=== PATIENT | female | born 1970 | race Caucasian/White ===

== ENCOUNTER 2024-05-13 06:12 | Emergency (ER) | payer OTHER, SELFPAY ==
[2024-05-13 06:15] VITALS: BP 132/66
[2024-05-13 06:43] VITALS: BMI 15.9
[2024-05-13 07:02] LABS: % Basophils 0.7 % (0-2); % Eosinophils 0.7 % (0-6); % Immature Granulocytes 0.2 % (0-0.5); % Lymphocytes 22.2 % (20.5-51.1); % Monocytes 13.3 % (1.7-9.3); % Neutrophils 62.9 % (42.2-75.2); Absolute Monocytes 0.6 10^3/uL (0.1-0.6); Absolute Neutrophils 2.8 10^3/uL (1.4-6.5); Hemoglobin 13.6 g/dL (12.0-16.0); Mean Corp Hgb Conc. 33.2 g/dL (33.0-37.0); Mean Corpuscular Hgb 30.9 pg (27.0-31.0); Mean Corpuscular Volume 93.2 fL (81.0-99.0); Mean Platelet Volume 9.3 fL (7.4-10.4); Nucleated Red Blood Cells % 0 %; Platelet Count 203 10^3/uL (130-400); White Blood Cell Count 4.5 10^3/uL (4.8-10.8)
[2024-05-13 07:12] LABS: ALT (SGPT) 31 U/L (0-35); AST (SGOT) 44 U/L (14-36); Albumin 4.4 g/dl (3.5-5.0); Alkaline Phosphatase 79 U/L (38-126); Blood Urea Nitrogen 11 mg/dl (7-17); Calcium 9.4 mg/dl (8.4-10.2); Carbon Dioxide 27 mmol/L (22-30); Chloride 102 mmol/L (98-107); Estimated Creatinine Clearance 73 ml/min; Glucose 114 mg/dl (70-99); Lipase 113 U/L (23-300); Sodium 136 mmol/L (135-145); Total Bilirubin 0.4 mg/dl (0.2-1.3); Total Protein 6.6 g/dl (6.3-8.2); eGFR > 60.00
[2024-05-13 07:21] LABS: Potassium 3.9 mmol/L (3.5-5.1)
--- NOTE | 2024-05-13 07:47 | ED.GENMED ---
History of Present Illness
General
Chief Complaint: Flank Pain
Source: patient
Time Seen by Provider: 05/13/24 07:16
History of Present Illness
History of Present Illness:
54-year-old female with previous history of alcohol abuse (sober x 5 years) presenting to the emergency department for evaluation of central abdominal pain described to go from the suprapubic region extending through the epigastric region as well as
feeling the sensation a little bit in her right lower back. Patient states the pain is sharp, constant since yesterday with intermittent times of worse pain and accompanied with a little bit of nausea but no vomiting, no change in oral intake to
solids or liquids, no urinary symptoms or bowel changes. Patient denies any history of similar. No history of surgeries on her abdomen. She took a Tylenol around 8 PM last night but with minimal relief. Patient is also denying any fevers,
chills, rigors.
Past History
Past History
ED Past Medical History: Psychiatric
ED Past Surgical History: Gynecological
Social History
Tobacco: Smoker (1 cigar daily)
Alcohol: Former
Drug: None
Living: with family
Employment: Employed
Family History
Family History: Negative Early CAD
Phy Exam
Physical Exam
Physical Exam:
GENERAL: Alert , in no apparent distress but does appear uncomfortable
EYE: clear conjunctiva b/l
HEAD: NCAT
ENT: o/p clr, mmm.
CARDIAC: Regular rate and rhythm .
LUNGS: Clear breath sounds bilaterally, no acute respiratory distress, no wheezes/rales/rhonchi
ABDOMEN: Soft, right lower quadrant tenderness with grimacing on palpation, no r/g, no cvat, negative Salgado sign, mild tenderness at McBurney's point
NEUROLOGICAL: Alert and oriented
SKIN: Warm and dry, skin intact.
MUSCULOSKELETAL: well perfused.
PSYCH: Normal and appropriate interaction.
Scores
Heart Failure Risk
Heart Failure Risk Score: Not Applicable
Heart Score for Chest Pain Patients
STEMI patient?: Not applicable
Withdrawal Assessment of Alcohol
Withdrawal Assessment Completed?: Not applicable
Course
Orders/Labs/Results
Orders:
Orders
05/13/24 06:52
Complete Blood Count/With Diff Urgent
Comprehensive Metabolic Panel Urgent
Lipase Urgent
05/13/24 07:25
CT Abd/pel W Iv And Oral Contr Urgent
Comment:
Reason For Exam: central/RLQ abd pain
Iohexol [Omnipaque] See Protocol PO NOW STA
05/13/24 07:26
Ketorolac [Toradol] 30 mg IV NOW STA
05/13/24 08:28
Morphine Sulfate 4 mg IV NOW STA
05/13/24 08:38
Urinalysis Reflex To Culture Urgent
Date Specimen was Collected: 05/13/24
Time Specimen was Collected: 08:14
Urine Microscopic Reflex Cult Urgent
05/13/24 11:10
Add On- LAB Urgent
Tests Added?: troponin
Electrocardiogram (*1) Urgent
Reason for Study: Abdominal Pain
EKG- Treatment ONCE
05/13/24 11:42
Troponin I Routine
Abnormal Lab Results
05/13/24 05/13/24
06:52 08:38
WBC 4.5 L 10^3/uL
(4.8-10.8)
Absolute Lymphs (auto) 1.0 L 10^3/uL
(1.2-3.4)
Monocytes % 13.3 H %
(1.7-9.3)
Glucose 114 H mg/dl
(70-99)
AST 44 H U/L
(14-36)
Urine Ketones Trace A
(Negative)
Ur Occult Blood Reflex 3+ A
(Negative)
Leukocyte Esterase Rfl Trace A
(Negative)
Urine RBC 11-15 A /HPF
(0-2)
Urine Bacteria (Reflex) Few A
(Negative)
05/13/24 06:52
05/13/24 06:52
Vital Signs
Initial and Last Documented VS:
Initial Vital Signs
Temp Pulse Resp BP Pulse Ox
98.2 F 50 20 132/66 100
05/13/24 06:15 05/13/24 06:15 05/13/24 06:15 05/13/24 06:15 05/13/24 06:15
Last Documented Vital Signs
Temp Pulse Resp BP Pulse Ox
98.2 F 41 18 113/68 96
05/13/24 06:15 05/13/24 09:00 05/13/24 09:00 05/13/24 12:00 05/13/24 12:45
MDM/Problems Addressed
Differential Diagnosis Includes:
Appendicitis, renal/ureteral colic, pancreatitis, aortic pathology, urinary tract infection
MDM/Problems Addressed:
54-year-old female presenting to the emergency department for evaluation of abdominal pain that started yesterday afternoon, worse overnight prompting her to come to the ER this morning. Exam revealed significantly tender right lower quadrant and
patient did appear quite uncomfortable. Will treat pain with Toradol as patient stated she did not want any narcotic medication. Labs have been initiated upon arrival which are overall reassuring. Will add on a urinalysis and CT imaging.
Disposition pending.
*Pulse Oximetry
Patient hypoxic: no
*EKG
Heart Rate: 45
Rate: bradycardiac
Rhythm: sinus
[place]: normal axis
Ischemia: no ischemia
*Critical Care Note
Total Time (30-74mins, 75-104mins- exclusive of procedures): Not Applicable
Comment
Comment:
8:35 AM - patient with minimal improvement following toradol. Ammenable to morphine. Awaiting CT imaging
Patient Management
Escalation/DeEscalation of care consider admission/obs:
Patient CT scan does not show any acute pathology within the abdomen and pelvis. Incidental findings of possible nutcracker syndrome versus pelvic congestion syndrome discussed. I do not feel this is the likely cause of patient's pain but it is
possible. I did add on an EKG and troponin given patient's otherwise unremarkable workup which were also negative. Patient is feeling better and at this time stable for discharge home. Aware of return precautions to the ER.
ED Attending Note
-
Portions of this chart may have been created with voice recognition software.� Occasional wrong word or��sound alike� substitutions may have occurred due to the inherent limitations of voice recognition software.
Discharge Plan
Departure
Patient Disposition: Home (Routine Discharge)
Date of Disposition: 05/13/24
Time of Disposition: 11:47
Patient with high blood pressure during this ER visit?: No
Discharge Problem:
Abdominal pain
Instructions: Abdominal pain in adults - Discharge instructions
Prescriptions:
No Action
biotin 1,000 MCG tablet,chewable
10,000 mcg PO DAILY
zinc acetate 50 mg (zinc) Capsule
50 mg PO DAILY
calcium carbonate [Calcium 600] 600 mg calcium (1,500 mg) Tablet
1,200 mg PO DAILY
ibuprofen [Motrin] 400 mg Tablet
400 mg PO Q6H PRN (Reason: pain)
acetaminophen [Tylenol Extra Strength] 500 mg Capsule
1,000 mg PO Q6H PRN (Reason: pain)
cholecalciferol (vitamin D3) [Vitamin D3] 125 mcg (5,000 unit) Tablet
125 mcg PO DAILY
Balance Of Nature
2 tab PO DAILY
Rx Instructions:
1 tab fruits/1 tab veggies
Medical Marijuana
1 dose PO DAILY
Multivitamin For Her 50 +
1 tab PO DAILY
Probiotic
1 dose PO DAILY
Referrals:
Isabella Patel PA [Family Provider] -
Interventions
Interventions:
*Risk Screen - Suicide Last Done: 05/13/24 06:15
*General Assessment Last Done: 05/13/24 06:44
*Neglect/Abuse Screening Last Done: 05/13/24 06:15
ED- Fall Risk Assessment Last Done: 05/13/24 12:58
*ED COVID-19 Vaccine History Last Done: 05/13/24 06:44
*Nursing Disposition Last Done: 05/13/24 12:58
[facility]-Vhtdkf-Zidrkcstlr Assessment Last Done: 05/13/24 07:04
ED-Female Genitourinary Assessment Last Done: 05/13/24 07:04
Discharge Date and Time
Discharge Date/Time: 05/13/24 13:00
Print Language: [id number]
[2024-05-13] MEDS: OMNIPAQUE 50 ML PO (08:07)
[2024-05-13] MEDS: TORADOL 30 MG IV (08:08)
[2024-05-13 08:13] VITALS: BP 100/58
[2024-05-13 08:57] LABS: Urine Albumin Trace (Neg - Trace); Urine Bilirubin Negative (Negative); Urine Character Clear (Clear); Urine Color Yellow; Urine Glucose Negative (Negative); Urine Ketone Trace (Negative); Urine Leukocyte Trace (Negative); Urine Nitrite Negative (Negative); Urine Occult Blood 3+ (Negative); Urine Urobilinogen Negative (Neg - 1+)
[2024-05-13 09:00] VITALS: BP 106/62
[2024-05-13 10:00] VITALS: BP 115/60
[2024-05-13 10:25] LABS: Urine Mucus Few
[2024-05-13 10:26] LABS: Urine Amorphous Seen
[2024-05-13 10:27] LABS: Urine Bacteria Few (Negative); Urine White Cell 0-2 /HPF (0-5)
[2024-05-13 11:43] VITALS: BP 114/67
[2024-05-13 12:00] VITALS: BP 113/68
[2024-05-13 12:41] LABS: Troponin I < 0.012 ng/ml
== END 2024-05-13 13:00 | disposition home or self-care (01) ==
LOC: EMR 06:12
PROVIDERS: Physician Assistant Medical; EMERGENCY PHYSICIAN Emergency Medicine; FAMILY PHYSICIAN Physician Assistant Medical
DX: R10.30 Lower abdominal pain, unspecified (principal); F17.290 Nicotine dependence, other tobacco product, uncomplicated
CPT/HCPCS: 99284; 96374; 74177; 80053; 81003; 81015; 83690; 84484; 85025; 93005; Q9967

== ENCOUNTER → 2025-02-10 09:22 | Outpatient (REF) | payer OTHER, SELFPAY | LOC: RAD 09:22 | PROVIDERS: ATTENDING PHYSICIAN Urology; FAMILY PHYSICIAN Physician Assistant Medical | DX: N95.8 Other specified menopausal and perimenopausal disorders (principal); R35.0 Frequency of micturition; R39.15 Urgency of urination; N81.6 Rectocele; M62.89 Other specified disorders of muscle; M25.551 Pain in right hip; R10.2 Pelvic and perineal pain; N80.9 Endometriosis, unspecified | CPT/HCPCS: 76770; 76830; 76856 ==